=== PATIENT | female | born 1945 | race Caucasian/White ===

== ENCOUNTER 2019-03-06 11:22 | Inpatient (IN) ==
[2019-03-06] MEDS ORDERED: ONDANSETRON 4 MG/2 ML VIAL IV PRN (12:57)
[2019-03-06] MEDS ORDERED: ACETAMINOPHEN 325 MG TABLET PO PRN (12:57)
[2019-03-06] MEDS ORDERED: ALBUTEROL/IPRATROPIUM 3 ML NEB RESP TX PRN (13:00)
[2019-03-06 14:02] LABS: Basophils # 0.1 10*3/uL (0.0-0.2); Basophils % 0.3 % (0.0-0.8); Hematocrit 45.5 VOL% (35.7-47.0); Hemoglobin 14.9 GM/DL (12.0-16.0); Immature Granulocytes % 1.5 %; Immature Granulocytes Absolute 0.29 #; Lymphocytes # 0.5 10*3/uL (1.4-4.0); Lymphocytes % 2.7 % (21.3-54.2); Mean Corpuscular HGB Conc 32.7 GM/DL (32-36); Mean Corpuscular Volume 89.6 FL (87-102); Mean Platelet Volume 10.5 FL (9.6-12.0); Monocytes % 1.2 % (1.7-12.7); Neutrophils % 94.3 % (38.7-73.9); Platelet Count 350 T/CUMM (130-400); Red Blood Count 5.08 MC/CUMM (3.8-5.5); Red Cell Distribution Width 13.2 % (9.3-17.3); White Blood Count 19.6 T/CUMM (4-12)
[2019-03-06] MEDS: ALBUTEROL/IPRATROPIUM 3 ML NEB RESP TX SCH ×2 (14:21→19:20)
[2019-03-06 14:23] LABS: Lymphocytes 2 % (20-55); Platelet Estimate Normal; Segmented Neutrophils 98 % (50-85); Total Cells Counted 100
[2019-03-06 14:26] LABS: Tear Drop Cells Slight
[2019-03-06 14:28] LABS: Alanine Aminotransferase 30 U/L (13-56); Albumin 3.3 G/DL (3.4-5.0); Alkaline Phosphatase 85 U/L (45-117); Aspartate Amino Transferase 19 U/L (0-37); Bilirubin,Total < 0.39 MG/DL (0.2-1.0); Blood Urea Nitrogen 27 MG/DL (7-18); Calcium 8.7 MG/DL (8.5-10.1); Estimated Glom Filtration Rate 57 ML/MIN; Glucose 118 MG/DL (74-106); Osmolality,Calculated 256.5 MOS/KG (273-304); Total Protein 7.5 G/DL (6.4-8.3)
[2019-03-06] MEDS: cefTRIAXone 1,000 MG in SYRINGE 1 EACH IV SCH (14:47)
[2019-03-06] MEDS: methylPREDNISolone SOD SUC 40 MG/1 ML VIAL IV SCH ×2 (14:50→23:35)
[2019-03-06] MEDS: SODIUM CHLORIDE 0.45% 1,000 ML IV SCH (15:29)
[2019-03-06] MEDS: MECLIZINE 25 MG TABLET PO SCH ×2 (16:30→23:35)
[2019-03-06] MEDS: DOCUSATE SODIUM 100 MG CAPSULE PO SCH (23:34)
[2019-03-06] MEDS: ENOXAPARIN 40 MG/0.4 ML SYRINGE SUBCUT SCH (23:35)
[2019-03-07] MEDS: ALBUTEROL/IPRATROPIUM 3 ML NEB RESP TX SCH ×4 (00:34→20:10)
[2019-03-07 03:53] LABS: Apearance,Urine CLEAR (Clear); Bilirubin,Urine Negative (Negative); Blood, Urine Small mg/dL (Negative); Glucose,Urine (UA) Negative (Negative); Ketones,Urine Negative (Negative); Mucus,Urine Occasional /LPF (Occasional); Nitrite,Urine Negative (Negative); Protein,Urine Negative; RBC,Urine <1 /HPF (0-4); Squamous Epithelial Cell,Urine Occasional /HPF (0-10); Urine Color Straw (Yellow); Urine Specific Gravity 1.006 (1.001-1.035); Urine Urobilinogen < 2.0 EU/DL (0.2-1.0); WBC,Urine <1 /HPF (0-6)
[2019-03-07] MEDS: SODIUM CHLORIDE 0.45% 1,000 ML IV SCH (04:59)
[2019-03-07] MEDS: methylPREDNISolone SOD SUC 40 MG/1 ML VIAL IV SCH ×2 (06:16→17:06)
[2019-03-07] MEDS: MECLIZINE 25 MG TABLET PO SCH ×4 (10:16→20:01)
[2019-03-07] MEDS: DOCUSATE SODIUM 100 MG CAPSULE PO SCH ×2 (10:17→20:04)
[2019-03-07] MEDS: PREGABALIN 50 MG CAPSULE PO SCH ×2 (10:17→20:03)
[2019-03-07] MEDS: cefTRIAXone 1,000 MG in SYRINGE 1 EACH IV SCH (10:18)
[2019-03-07] MEDS: NICOTINE 14 MG/24 HR PATCH TRANSDERM SCH (10:18)
[2019-03-07] MEDS: PANTOPRAZOLE 40 MG TABLET PO SCH ×2 (10:18→20:02)
[2019-03-07] MEDS: ENOXAPARIN 40 MG/0.4 ML SYRINGE SUBCUT SCH (20:04)
[2019-03-08] MEDS: ALBUTEROL/IPRATROPIUM 3 ML NEB RESP TX SCH ×2 (01:27→07:15)
[2019-03-08] MEDS: methylPREDNISolone SOD SUC 40 MG/1 ML VIAL IV SCH ×2 (01:33→08:26)
[2019-03-08 08:14] VITALS: BP 142/58
[2019-03-08] MEDS: DOCUSATE SODIUM 100 MG CAPSULE PO SCH (08:26)
[2019-03-08] MEDS: PANTOPRAZOLE 40 MG TABLET PO SCH (08:26)
[2019-03-08] MEDS: cefTRIAXone 1,000 MG in SYRINGE 1 EACH IV SCH (08:26)
[2019-03-08] MEDS: MECLIZINE 25 MG TABLET PO SCH (08:26)
[2019-03-08 08:50] LABS: Folate 7.6 NG/ML (5.4-24.0)
[2019-03-08] MEDS: PREGABALIN 50 MG CAPSULE PO SCH (10:21)
[2019-03-08] MEDS: NICOTINE 14 MG/24 HR PATCH TRANSDERM SCH (10:22)
== END 2019-03-08 10:20 | disposition home or self-care (01) | DRG 192 ==
LOC: N.2E 13:06
PROVIDERS: ADMIT Family Medicine; ATTEND Family Medicine